=== PATIENT | female | born 1975 ===

== ENCOUNTER 2018-06-24 10:18 | Outpatient (CLI) | payer OTHER | END 2018-06-24 10:19 | disposition home or self-care (01) | LOC: C.LAB 10:18 | DX: E03.9 Hypothyroidism, unspecified (principal) ==

== ENCOUNTER 2018-07-01 07:57 | Outpatient (CLI) | payer SELFPAY, OTHER | END 2018-07-01 07:58 | disposition home or self-care (01) | LOC: C.USIC 07:57 | DX: R74.8 Abnormal levels of other serum enzymes (principal) ==